=== PATIENT | male | born 1965 | race Caucasian/White ===

== ENCOUNTER 2023-02-19 11:59 | Outpatient (CLI) | payer BC, SELFPAY | END 2023-02-19 12:00 | disposition home or self-care (01) | PROVIDERS: PCP Family Medicine; Visit Provider Family Medicine | DX: G62.9 Polyneuropathy, unspecified (principal); E55.9 Vitamin D deficiency, unspecified | CPT/HCPCS: 80053; 82306; 82607; 84443; 85025; 85651; 86618 ==

== ENCOUNTER 2023-05-07 08:41 | Outpatient (CLI) | payer BC, SELFPAY ==
--- NOTE | 2023-05-07 09:17 | P.ANHP_ITS ---
HPI - Pre-Anesthesia History of Present Illness Time Seen by Provider: 09:17 Date Seen: 05/07/23 Date of service: 05/07/23 Source: patient and old records reviewed Review of Systems Status of ROS Reports: 6 or more systems reviewed and unremarkable except as noted in History and below [facility] Medical History (Updated 05/07/23 @ 09:18 by Ady Arango MD) Vitamin D deficiency ?E55.9 - Vitamin D deficiency, unspecified (ICD-10) Neuropathy ?G62.9 - Polyneuropathy, unspecified (ICD-10) Sensorineural hearing loss (SNHL) of both ears (10/22/07) ?H90.3 - Sensorineural hearing loss, bilateral (ICD-10) Obstructive sleep apnea syndrome ?G47.33 - Obstructive sleep apnea (adult) (pediatric) (ICD-10) History of adenomatous polyp of colon (06/01/15) ?Z86.010 - Personal history of colonic polyps (ICD-10) Surgical History (Updated 02/18/23 @ 12:44 by Joellen Kim) History of vasectomy ?Z98.52 - Vasectomy status (ICD-10) History of tonsillectomy and adenoidectomy (04/20/08) ?Z90.89 - Acquired absence of other organs (ICD-10) History of nasal septoplasty (04/20/08) ?Z98.890 - Other specified postprocedural states (ICD-10) Family History (Updated 02/18/23 @ 12:54 by Joellen Kim) Father Heart disease Family/Other Diabetes Social History (Updated 02/18/23 @ 12:55 by Joellen Kim) Narrative: , 2 sons, 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[employer], nonsmoker, social EtOH Smoking Status: Never smoker Little interest or pleasure in doing things: not at all Feeling down, depressed, or hopeless: not at all Meds Home Medications and Allergies Allergies Allergy/AdvReac Type Severity Reaction Status Date / Time No Known Drug Allergies Allergy Verified 02/19/23 11:02 Exam Const Documenting provider has reviewed patient's vital signs: yes Common normals: no apparent distress, oriented x3, healthy appearing, alert and well nourished General appearance: cooperative and comfortable Orientation/consciousness: Yes awake HENMT Common normals: normocephalic Head and scalp: normocephalic Neck & C-Spine Common normals: full ROM Chest Chest: symmetrical chest wall rise Resp Common normals: normal respiratory effort, no retractions, no use of accessory muscles and clear to auscultation bilaterally Auscultation: clear to auscultation bilaterally Cardio Common normals: regular rate, regular rhythm, S1 normal heart sound, S2 normal heart sound and no murmurs Rate: regular rate Rhythm: regular rhythm Heart sounds: S1 normal and S2 normal Neuro Common normals: oriented x3 Sensorium/orientation: awake and alert Assessment and Plan Assessment and plan (1) History of adenomatous polyp of colon: Status: Acute Plan ok to proceed with colonoscopy and sedation
--- NOTE | 2023-05-07 09:17 | W.ANESCHARGE ---
Anesthesia Charges Start Date/Time Anesthesia Start Date: 05/07/23 Anesthesia Start Time: 09:42 Stop Date/Time Anesthesia Stop Date: 05/07/23 Anesthesia Stop Time: 10:15
--- NOTE | 2023-05-08 07:39 | W.ANESCHARGE ---
Anesthesia Charges Start Date/Time Anesthesia Start Date: 05/07/23 Anesthesia Start Time: 09:42 Stop Date/Time Anesthesia Stop Date: 05/07/23 Anesthesia Stop Time: 10:15
== END 2023-05-07 08:42 | disposition home or self-care (01) ==
LOC: OP CLINIC 08:42
PROVIDERS: PCP Family Medicine; Visit Provider Surgery
DX: Z12.11 Encounter for screening for malignant neoplasm of colon (principal); K63.5 Polyp of colon; K57.30 Diverticulosis of large intestine without perforation or abscess without bleeding; Z86.010 Personal history of colon polyps
CPT/HCPCS: 00811; 45385; 88305